=== PATIENT | female | born 1965 | race Caucasian/White ===

== ENCOUNTER 2018-07-10 19:49 | Emergency (ER) | payer MEDICAID ==
[2018-07-10] MEDS ORDERED: ASPIRIN 325 MG TAB PO (20:52)
[2018-07-10 21:13] LABS: ADD MAN DIFF? NO
[2018-07-10] MEDS ORDERED: ASPIRIN 81 MG TAB (21:13)
[2018-07-10 21:15] LABS: BASOPHILS % 1.2 % (0.0-2.0); EOSINOPHILS # 0.1 10^3/ul (0.0-0.5); EOSINOPHILS % 1.8 % (0.0-7.0); HEMATOCRIT 35.4 % (37.0-47.0); HEMOGLOBIN 11.2 g/dl (12.0-16.0); LYMPHOCYTES # 1.1 10^3/ul (0.8-2.9); LYMPHOCYTES % 33.2 % (15.0-51.0); MEAN CORPUSCULAR HEMOGLOBIN 30.3 pg (29.0-33.0); MEAN CORPUSCULAR HGB CONC 31.6 g/dl (32.0-37.0); MEAN CORPUSCULAR VOLUME 95.7 fl (82.0-101.0); MEAN PLATELET VOLUME 9.7 fl (7.4-10.4); MONOCYTE # 0.4 10^3/ul (0.3-0.9); MONOCYTES % 13.5 % (0.0-11.0); NEUTROPHIL # 1.6 10^3/ul (1.6-7.5); PLATELET COUNT 192 10^3/UL (140-415); RED CELL DISTRIBUTION WIDTH 14.6 % (11.5-14.5)
[2018-07-10 21:15] LABS: WHITE BLOOD COUNT 3.3 10^3/ul (4.8-10.8)
[2018-07-10] MEDS: LIDOCAINE/MYLANTA 40 ML BTL PO (21:17)
[2018-07-10] MEDS: ASPIRIN 81 MG TAB PO (21:24)
[2018-07-10 21:34] LABS: ANION GAP 16 (8-16); BLOOD UREA NITROGEN 10 mg/dl (7-20); CALCIUM 9.7 mg/dl (8.4-10.2); CARBON DIOXIDE 20 mmol/L (21-31); CHLORIDE 107 mmol/L (97-110); GLUCOSE 105 mg/dl (70-220); POTASSIUM 3.7 mmol/L (3.5-5.1); SODIUM 139 mmol/L (135-144)
[2018-07-10 21:43] LABS: B-TYPE NATRIURETIC PEPTIDE 44 PG/ML (0-125)
[2018-07-10 21:47] LABS: TROPONIN-I < 0.012 ng/ml (0.000-0.120)
[2018-07-10 22:39] LABS: ALANINE AMINOTRANSFERASE 81 IU/L (13-69); ALBUMIN 4.2 g/dl (3.3-4.9); ALKALINE PHOSPHATASE 122 IU/L (42-121); ASPARTATE AMINO TRANSFERASE 136 IU/L (15-46); LIPASE 530 U/L (23-300)
== END 2018-07-11 00:36 | disposition home or self-care (01) ==
LOC: E/R 07-11 00:36
DX: K76.0 Fatty (change of) liver, not elsewhere classified (principal); R40.2142 Coma scale, eyes open, spontaneous, at arrival to emergency department; R40.2362 Coma scale, best motor response, obeys commands, at arrival to emergency department; R40.2252 Coma scale, best verbal response, oriented, at arrival to emergency department; K21.9 Gastro-esophageal reflux disease without esophagitis; D21.9 Benign neoplasm of connective and other soft tissue, unspecified; I10 Essential (primary) hypertension
CPT/HCPCS: 36415; 71045; 74176; 76705; 80048; 80076; 83690; 83880; 84484; 85025; 93005; 99285-25